=== PATIENT | female | born 1960 | race African-American/Black ===

== ENCOUNTER 2020-03-25 22:35 | Emergency (ER) | payer BC, OTHER ==
[~2020-03-25] VITALS: Ht 167.6 cm; Wt 59.0 kg
[2020-03-25] MEDS ORDERED: KETOROLAC 60MG/2ML VIAL IM STA (23:04)
[2020-03-25 23:43] LABS: BASOPHILS % 0.7 % (0.0-2.0); EOSINOPHILS % 0.7 % (0.0-5.0); HEMATOCRIT. 34.6 % (36.0-48.0); HEMOGLOBIN. 11.8 g/dL (12.0-16.0); MEAN CORPUSCULAR HEMOGLOBIN 28.6 pg (28.0-32.0); MEAN PLATELET VOLUME 8.1 fl (7.4-10.4); MONOCYTES % 4.1 % (2.0-8.0); NEUTROPHILS % 50.5 % (40.0-76.0); PLATELET 249 x1000/uL (130-400); RED BLOOD CELL COUNT 4.12 mill/uL (4.2-5.4); RED CELL DISTRIBUTION WIDTH 14.9 % (11.6-14.6)
[2020-03-25 23:49] LABS: CHLORIDE 106 mEq/L (98-107)
[2020-03-25 23:53] LABS: ETHANOL BLOOD < 10 mg/dL
[2020-03-26 00:10] LABS: *AMPHETAMINES SCREEN URINE NEGATIVE (NEGATIVE)
[2020-03-26 00:11] LABS: *BARBITURATES SCREEN URINE NEGATIVE (NEGATIVE); *BENZODIAZEPINES SCREEN URINE NEGATIVE (NEGATIVE); *COCAINE SCREEN URINE NEGATIVE (NEGATIVE); METHADONE URINE SCREEN NEGATIVE (NEGATIVE); OPIATES URINE SCREEN NEGATIVE (NEGATIVE)
[2020-03-26 00:12] LABS: CANNABINOID URINE SCREEN NEGATIVE (NEGATIVE); PHENCYCLIDINE URINE SCREEN NEGATIVE (NEGATIVE)
[2020-03-26 00:21] LABS: HCG SCREEN NEGATIVE
[2020-03-26] MEDS ORDERED: HYDROCODONE/ACETAMINOPHEN 5/325MG TABLET PO ONE ×2 (01:30→04:30)
[2020-03-26 04:59] VITALS: BP 139/86
== END 2020-03-26 05:02 | disposition home or self-care (01) ==
LOC: ER 22:35
DX: M54.2 Cervicalgia (principal); R07.89 Other chest pain; J45.909 Unspecified asthma, uncomplicated; Z88.5 Allergy status to narcotic agent; R51 Headache; V49.49XA Driver injured in collision with other motor vehicles in traffic accident, initial encounter; Y93.89 Activity, other specified; Y92.89 Other specified places as the place of occurrence of the external cause; Y99.8 Other external cause status
CPT/HCPCS: 36415; 70450; 71045; 72125; 80053; 80305; 80320; 84703; 85025; 96372; 99285; J1885; G0480